=== PATIENT | female | born 1995 | race Caucasian/White ===

== ENCOUNTER → 2016-11-12 20:01 | Observation (INO) ==
--- NOTE | 2016-11-12 19:43 | Discharge Summary ---
Date of Encounter: 11/12/16 Time of Encounter: 19:45 - Discharge Diagnosis (1) 28 weeks gestation of Priority: Primary Status: Acute Comments: Admitted for observation (2) Decreased movement during in third trimester, antepartum Priority: Secondary Status: Acute Comments: Continuous monitoring. FHR 140 bpm, appropriate for gestational age. Qualifiers: Fetus number: single or unspecified fetus Qualified Code(s): O36.8130 - Decreased movements, third trimester, not applicable or unspecified - Discharge Medications Allergies/Adverse Reactions: 3 Allergy/AdvReac Type Severity Reaction Status Date / Time No Known Allergies Allergy Verified 12/12/15 00:06 Date of admission: 11/12/16 18:28 Discharging clinician: Jennifer Mcfarland Anticipated date of discharge: 11/12/16 - Patient Status Disposition: Home, Self-Care Condition: Good Functional capacity at discharge: independent ambulation - Discharge Instructions Follow Up With: Robert Kay DO [Partnered Physician] - - Diet and Activity Activity: increase activity as tolerated Diet: advance to your usual diet 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 States she had only felt 3-4 movements since this morning. Patient reports good movement since she has been on the monitor. Denies fluid leakage and vaginal bleeding. Discussed when to begin kick counts in and expectations of how many movements are normal at this gestation. Time Attestation: Total time spent providing and/or coordinating discharge services: Time Spent: Less than 30 minutes Exam - Constitutional General appearance IM: A&O X 3, pleasant, no acute distress, answers questions appropriately - Respiratory Respiratory exam: Present: CTAB - Cardiovascular Cardiovascular exam IM: Present: RRR, +S1, +S2 - GI/Abdominal GI/Abdominal exam IM: normal bowel sounds - Rectal Rectal exam: deferred - Extremities Exam Extremities exam IM: Present: full ROM, normal capillary refill, normal inspection - Neurological Exam Neurological exam: alert, oriented X3 - Other Additional findings: FHR 140 bpm, appropriate for gestational age - VTE Reasons for not Prescribing Prophylaxis: Treatment not Indicated - Low risk for VTE
== END | disposition home or self-care (01) ==
LOC: 1NENULAB
PROVIDERS: ADMIT Obstetrics & Gynecology; ATTEND Obstetrics & Gynecology

== ENCOUNTER → 2016-11-26 16:03 | Observation (INO) ==
[2016-11-26 15:29] LABS: Bilirubin,Urine Negative (Negative); Blood,Urine Negative (Negative); Clarity,Urine Cloudy (Clear); Color,Urine Yellow (Yellow); Glucose,Urine (UA) Normal (Normal); Ketones,Urine Negative (Negative); Leukocyte Esterase,Urine Large (Negative); Nitrite,Urine Positive (Negative); PH,Urine 7.5 pH Units (5.0-8.0); Protein,Urine Negative (Neg-Trace); Specific Gravity,Urine 1.011 (1.010-1.025); Urobilinogen,Urine Normal (Normal)
[2016-11-26 15:30] LABS: Bacteria,Urine Many per hpf (None-Few); Hyaline Casts,Urine None Seen per lpf (None-Few); RBC,Urine 0-3 per hpf (0-3); Squamous Epithelial Cell,Urine Many per lpf (None-Few)
[2016-11-26 15:35] LABS: Amphetamine Screen,Urine Negative ng/mL (Cutoff=1000); Barbiturate Screen,Urine Negative ng/mL (Cutoff=200); Benzodiazepines Screen,Urine Negative ng/mL (Cutoff=200); Cannabinoid Screen,Urine Negative ng/mL (Cutoff = 50); Cocaine Screen,Urine Negative ng/mL (Cutoff= 300); Opiate Screen,Urine Negative ng/mL (Cutoff=300); Phencyclidine Screen,Urine Negative ng/mL (Cutoff=25)
--- NOTE | 2016-11-26 15:53 | Discharge Summary ---
Date of Encounter: 11/26/16 Time of Encounter: 15:52 - Discharge Diagnosis (1) 30 weeks gestation of Priority: Primary Status: Acute Comments: admitted for observation (2) UTI (urinary tract infection) in in third trimester Priority: Secondary Status: Acute Comments: RX for macrobid patient declined SVE - Discharge Medications Prescriptions: Nitrofurantoin (BID) [Macrobid] 100 mg PO BID 7 Days #14 capsule Home Medications: Nitrofurantoin (BID) [Macrobid] 100 mg PO BID 7 Days #14 capsule 11/26/16 [Rx] Allergies/Adverse Reactions: 3 Allergy/AdvReac Type Severity Reaction Status Date / Time No Known Allergies Allergy Verified 12/12/15 00:06 Data Procedures and tests throughout hospitalization: Laboratory Tests 11/26/16 11/26/16 15:17 15:17 Urine Color Yellow Urine Clarity Cloudy A Urine pH 7.5 Ur Specific [place] 1.011 Urine Protein Negative Urine Glucose (UA) Normal Urine Ketones Negative Urine Blood Negative Urine Nitrite Positive A Urine Bilirubin Negative Urine Urobilinogen Normal Ur Leukocyte Esterase Large H Urine Microscopic RBC 0-3 Urine Microscopic WBC 5-15 H Ur Squamous Epith Cells Many H Urine Bacteria Many H Hyaline Casts None Seen Ur Culture Indicated? YES A Urine Opiates Screen Negative Ur Barbiturates Screen Negative Ur Phencyclidine Scrn Negative Ur Amphetamines Screen Negative U Benzodiazepines Scrn Negative Urine Cocaine Screen Negative U Marijuana (THC) Screen Negative Labs on day of discharge: Labs from last 24 hours 11/26/16 11/26/16 15:17 15:17 Urine Color Yellow Urine Clarity Cloudy A Urine pH 7.5 Ur Specific [place] 1.011 Urine Protein Negative Urine Glucose (UA) Normal Urine Ketones Negative Urine Blood Negative Urine Nitrite Positive A Urine Bilirubin Negative Urine Urobilinogen Normal Ur Leukocyte Esterase Large H Urine Microscopic RBC 0-3 Urine Microscopic WBC 5-15 H Ur Squamous Epith Cells Many H Urine Bacteria Many H Hyaline Casts None Seen Ur Culture Indicated? YES A Urine Opiates Screen Negative Ur Barbiturates Screen Negative Ur Phencyclidine Scrn Negative Ur Amphetamines Screen Negative U Benzodiazepines Scrn Negative Urine Cocaine Screen Negative U Marijuana (THC) Screen Negative Date of admission: 11/26/16 15:00 Discharging clinician: Jennifer Mcfarland Anticipated date of discharge: 11/26/16 - Patient Status Disposition: Home, Self-Care Condition: Good Functional capacity at discharge: independent ambulation - Discharge Instructions Follow Up With: Robert Kay DO [Partnered Physician] - Additional Instructions: LABOR AND DELIVERY DISCHARGE INSTRUCTIONS Signs and Symptoms to be Reported to your Doctor Immediately: * Sudden gush, continuous or intermittent lead of fluid from vagina (note the time of gush and color of fluid) * Onset of bright red vaginal bleeding with or without pain (if you had a vaginal exam during this visit you may notice some dark red spotting. This is normal.) * Lower abdominal cramping or backache that is premenstrual-like feeling. * More than 6 contractions in one hour. * Burning during urination, having to urinate more frequently or pain in your mid-back. * A change in the baby's activity. This could be an increase or decrease in activity. * Severe headache which does not go away with tylenol. * Sudden swelling in the face, hands, arms and/or legs. * Upper abdominal pain - sometimes associated with heartburn or nausea and is not relieved by Maalox, Mylanta or Tums. * Dizziness or blurred vision or visual disturbances (seeing stars/lights). * Kick Counts One hour after a meal, lay down on one side in a quiet place. Count the number of delvin the baby moves during an hour. If less than 6 movements, notify your physician. Diet: *Force fluids - 8-10 tall glasses of fluid per day. May include popsicles and jello. 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 Patient states it all started this morning after being at work all night. Patient reports +FM and denies LOF or VB. Patient declines SVE Time Attestation: Total time spent providing and/or coordinating discharge services: Time Spent: Less than 30 minutes Exam - Constitutional General appearance IM: A&O X 3, pleasant, answers questions appropriately - Respiratory Respiratory exam: Present: CTAB - Cardiovascular Cardiovascular exam IM: Present: RRR, +S1, +S2 - GI/Abdominal GI/Abdominal exam IM: normal bowel sounds Additional comments: tender over bladder - Extremities Exam Extremities exam IM: Present: full ROM, normal capillary refill, normal inspection - Neurological Exam Neurological exam: alert, oriented X3, reflexes normal - Other Additional findings: FHR 145 bpm moderate variability +15x15 accels no decels noted. - VTE Reasons for not Prescribing Prophylaxis: Treatment not Indicated - Low risk for VTE
== END | disposition home or self-care (01) ==
LOC: 1NENULAB
PROVIDERS: ADMIT Obstetrics & Gynecology; ATTEND Obstetrics & Gynecology

== ENCOUNTER 2017-01-03 22:36 | Inpatient (IN) ==
[2017-01-03 22:57] LABS: Bilirubin,Urine Negative (Negative); Blood,Urine Negative (Negative); Clarity,Urine Cloudy (Clear); Color,Urine Yellow (Yellow); Glucose,Urine (UA) Normal (Normal); Ketones,Urine Negative (Negative); Leukocyte Esterase,Urine Moderate (Negative); Nitrite,Urine Negative (Negative); Protein,Urine Negative (Neg-Trace); Urobilinogen,Urine Normal (Normal)
[2017-01-03 22:59] LABS: Bacteria,Urine Few per hpf (None-Few); Hyaline Casts,Urine None Seen per lpf (None-Few); RBC,Urine 0-3 per hpf (0-3); Squamous Epithelial Cell,Urine Many per lpf (None-Few)
[2017-01-03 23:02] LABS: Amphetamine Screen,Urine Negative ng/mL (Cutoff=1000); Barbiturate Screen,Urine Negative ng/mL (Cutoff=200); Benzodiazepines Screen,Urine Negative ng/mL (Cutoff=200); Cannabinoid Screen,Urine Negative ng/mL (Cutoff = 50); Cocaine Screen,Urine Negative ng/mL (Cutoff= 300); Opiate Screen,Urine Negative ng/mL (Cutoff=300); Phencyclidine Screen,Urine Negative ng/mL (Cutoff=25)
--- NOTE | 2017-01-03 23:09 | OB/GYN Progress Note ---
Date of Encounter: 01/03/17 Time of Encounter: 23:07 - Assessment and Plan (1) Pelvic pressure in , antepartum Current Visit: Yes Status: Acute Cervical dilation unchanged from last office VE., but descent into pelvis to -1 station. Pt states does not feel contractions, uterine irritability noted on tracing. Discussed with patient increase pressure from descent and vaginal discomfort can occur with descent. Will recheck cervix in one hour if no change discharge home with labor and when to return to triage precautions. (2) 35 weeks gestation of Current Visit: No Status: Acute Subjective - Subjective Interval history: 35+3 gestation. Complains of feeling increased pelvic pressure today accompanied with occasional sharp shooting vaginal pains. Reports good movement, denies contractions, vaginal bleeding or leaking of fluid. Antepartum ROS: movement normal, no loss of fluid, no vaginal bleeding, no contractions Objective - Vital Signs Vital Signs: Intake and Output 01/03/17 01/03/17 01/03/17 07:59 15:59 23:59 Other: Weight 73.6 kg Patient Weight 01/03/17 23:59 Weight 73.6 kg - Exam FHR: auscultation normal FHR comments: Baseline 140, reactive Abdomen: Present: normal appearance, soft, gravid Uterus: Present: normal Cervical dilation: 2/50/-1 Per RN - Labs Labs: Abnormal lab results Urine Clarity Cloudy (Clear) A 01/03/17 22:45 Ur Leukocyte Esterase Moderate (Negative) H 01/03/17 22:45
[2017-01-03] MEDS ORDERED: Ringers Solution, Lactated 1,000 ML IVC ONE (23:36)
[2017-01-03] MEDS ORDERED: Ringers Solution, Lactated 1,000 ML ONE (23:38)
[2017-01-04] LABS: Hematocrit 31.2 % (35.3-44.9); Hemoglobin 10.4 g/dL (11.5-15.4); Immature Platelets 2.5 % (1.1-6.1); Mean Corpuscular HGB Conc 33.3 g/dL (31.6-35.5); Mean Corpuscular Hemoglobin 28.5 pg (28.0-33.3); Mean Corpuscular Volume 85.5 fL (83.0-100.0); Mean Platelet Volume 9.5 fL (9.4-12.4); Red Blood Count 3.65 M/mcL (3.82-4.97); Red Cell Distribution Width 12.9 % (11.5-14.5)
[2017-01-04] MEDS: Betamethasone Acet/SodPhos 6 MG/ML MDV IM SCH (00:02)
[2017-01-04] MEDS ORDERED: Penicillin G Potassium 5,000,000 UNIT in D5% in Water 100 ML IVPB ONE (07:22)
--- NOTE | 2017-01-04 10:41 | OB/GYN History & Physical ---
Date of Encounter: 01/04/17 Time of Encounter: 10:38 Assessment and Plan (1) 35 weeks gestation of Current visit: Yes Status: Acute Discussed with Dr. Brooks Patient is 35w4d Reports feeling contractions today of unknown length. Having a baby boy planning to name him Yoko Pt has made change from 2 to now 6cm. Admitted for labor Patient started on penicillin for GBS prophylaxis One dose of betamethasone has been given. Per Dr. Brooks keep next dose at 24 hours Nuabin and epidural as desires Anticipate (2) Pelvic pressure in , antepartum Current visit: Yes Status: Acute Patient presented for pelvic pressure and vaginal pain but states that she has not had any today. History of Present Illness Chief complaint: Pelvic Pressure in HPI: Ms. Rodriguez is a 21 year old female that is 35w4d. Presents to L&D for pelvic pressure. She states that last night she was having pelvic pressure and vaginal pain. she states that she has not really been having any vaginal pain today. She denies any loss of fluid, vaginal discharge but does state that she has had some bleeding after the last time her cervix was checked. States that she is still having good movement. She states that she feels like she has been having contractions but does not know how far apart they are and states that they are on an off. Pt with slow progressive surgical change noted overnight. now admitted to L&D for delivery. Gonorrhea-not detected Chlamydia-not detected Gardnerella- not detected HIV-Nonreactive Treponema-Negative Rubella IgG Antibody-Positive Varicella IgG Antibody-Positive type and screen- O Positive GBS unknown Past Med Surg Social Fam HX - Past Medical History Medical history: no medical history, migraine Psychiatric history: anxiety, depression - Past Surgical History Surgical History: other - Social History Smoking Status: Never smoker Smokeless Tobacco Status: No Alcohol use: none Drug use: none - Family History Mother Family Member Ethnicity: Non- Living Status: Still Living Hx Family Cardiac Disorders: No Hx Family Respiratory Disorders: No Hx Family Cancer: No Hx Family GI Disorders: No Hx Family Endocrine Disorder: No Hx Family Neuromuscular Disorders: No Hx Family Neurologic Disorders: No Hx Family HEENT Disorders: No Hx Family Autoimmune Disorders: No Obstetrical History - Pregnancies : 3 Para: 1 Term: 1 : 0 Ab's: 0 Livin Medications and Allergies Nitrofurantoin (BID) [Macrobid] 100 mg PO BID 7 Days #14 capsule 11/26/16 [Rx] 3 Allergy/AdvReac Type Severity Reaction Status Date / Time No Known Allergies Allergy Verified 12/12/15 00:06 Review of System OB All systems PM: reviewed and no additional remarkable complaints except as stated Exam - Constitutional Constitutional: well developed, well nourished, no acute distress - HEENT HEENT: Normocephaly, Mucus Membranes Moist - Neck Neck exam: full ROM - Lungs Respiratory exam: CTAB - Cardiovascular Cardiovascular exam: RRR, +S1, +S2 - Abdomen Abdomen: Present: bowel sounds normal - Extremities Extremities exam: full ROM, normal inspection - Cervix Dilation: 4 (Per RN) - Uterus Uterus exam: Present: normal size, normal contour Results Result Diagrams: 01/03/17 23:50 Abnormal lab results RBC 3.65 M/mcL (3.82-4.97) L 01/03/17 23:50 Hgb 10.4 g/dL (11.5-15.4) L 01/03/17 23:50 Hct 31.2 % (35.3-44.9) L 01/03/17 23:50 Urine Clarity Cloudy (Clear) A 01/03/17 22:45 Ur Leukocyte Esterase Moderate (Negative) H 01/03/17 22:45 Urine Microscopic WBC 5-15 per hpf (0-3) H 01/03/17 22:45 Ur Squamous Epith Cells Many per lpf (None-Few) H 01/03/17 22:45 Ur Culture Indicated? YES (NO) A 01/03/17 22:45 All other labs normal. - VTE Reasons for not Prescribing Prophylaxis: Treatment not Indicated - Low risk for VTE
[2017-01-04] MEDS ORDERED: *HR* Nalbuphine 20 MG/ML AMPUL IVP PRN (11:53)
[2017-01-04] MEDS ORDERED: Famotidine 20 MG/2 ML VIAL IVP PRN (11:53)
[2017-01-04] MEDS ORDERED: Naloxone 0.4 MG/ML INJ IVP PRN (11:53)
[2017-01-04] MEDS ORDERED: Ondansetron 4 MG/2 ML VIAL IVP PRN (11:53)
[2017-01-04] MEDS ORDERED: Ringers Solution, Lactated 1,000 ML ONE ×2 (12:13→21:25)
[2017-01-04] MEDS: Penicillin G Potassium 2,500,000 UNIT in D5% in Water 100 ML IVPB SCH ×4 (12:16→20:37)
--- NOTE | 2017-01-04 15:57 | OB Labor Progress Note ---
Date of Encounter: 01/04/17 Time of Encounter: 15:55 Labor Progress Note - Subjective Subjective: Patient is resting comfortably in bed at this time. States she feels contractions, but they are not significantly painful. Does not desire any pain medications at this time. - Vital Signs Vital Signs: VSS - Cervix Cervix: Patient was 6 cm at noon per RN. Delaying cervical check until patient condition changes due to her pre-term status. - Heart Tones Heart Tones: 120/moderated/positive accels/negative decels/CAT-I - [place]: q2-7 minutes - Plan Plan: Continue expectant management. PCN for GBS unknown. Patient received one dose of 12mg IM Betamethasone. Next dose due at midnight. Nubain and epidural as desired. Anticipate .
--- NOTE | 2017-01-04 19:55 | OB Labor Progress Note ---
Date of Encounter: 01/04/17 Time of Encounter: 19:52 Labor Progress Note - Subjective Subjective: Pt states she is only feeling occasional contractions - Cervix Cervix: 6 per RN - Heart Tones Heart Tones: 125/moderate/+accels/-decels - [place]: occasional ctx - Plan Plan: Due to decrease in ctx and no cervical change in 6 hours will allow patient to eat one meal then back to clear liquids Maintain admission overnight for labor evaluation Betametasone tonight Ambien 5mg for sleep if continues to have no contractions Will reassess in AM.
[2017-01-05] MEDS: Betamethasone Acet/SodPhos 6 MG/ML MDV IM SCH (00:16)
[2017-01-05] MEDS: Penicillin G Potassium 2,500,000 UNIT in D5% in Water 100 ML IVPB SCH ×2 (00:24→04:44)
--- NOTE | 2017-01-05 08:09 | Discharge Summary ---
Date of Encounter: 01/05/17 Time of Encounter: 08:11 - Discharge Diagnosis (1) labor in third trimester without delivery Priority: Primary Status: Acute Comments: The patient progressed to 5-6 cm/75/-1 per CNM. She has not made change in over 12 hours. She is comfortable and does not appreciate any regular contractions. She is had some show from her exams. She denies any loss of fluid. Fetus is active. She is being discharged home with labor warning signs. She lives 15 minutes away. (2) 35 weeks gestation of Priority: Secondary Status: Acute Comments: Follow-up as scheduled this week with Dr. Kay for care - Discharge Medications Home Medications: Nitrofurantoin (BID) [Macrobid] 100 mg PO BID 7 Days #14 capsule 11/26/16 [Rx] Allergies/Adverse Reactions: 3 Allergy/AdvReac Type Severity Reaction Status Date / Time No Known Allergies Allergy Verified 12/12/15 00:06 Data Procedures and tests throughout hospitalization: Laboratory Tests 01/03/17 01/03/17 01/03/17 22:45 22:45 23:50 WBC 10.2 RBC 3.65 L Hgb 10.4 L Hct 31.2 L MCV 85.5 MCH 28.5 MCHC 33.3 RDW 12.9 Plt Count 250 MPV 9.5 Immature Plt Fraction 2.5 Urine Color Yellow Urine Clarity Cloudy A Urine pH 7.0 Ur Specific [place] 1.020 Urine Protein Negative Urine Glucose (UA) Normal Urine Ketones Negative Urine Blood Negative Urine Nitrite Negative Urine Bilirubin Negative Urine Urobilinogen Normal Ur Leukocyte Esterase Moderate H Urine Microscopic RBC 0-3 Urine Microscopic WBC 5-15 H Ur Squamous Epith Cells Many H Urine Bacteria Few Hyaline Casts None Seen Ur Culture Indicated? YES A Urine Opiates Screen Negative Ur Barbiturates Screen Negative Ur Phencyclidine Scrn Negative Ur Amphetamines Screen Negative U Benzodiazepines Scrn Negative Urine Cocaine Screen Negative U Marijuana (THC) Screen Negative Labs on day of discharge: Urine culture negative Date of admission: 01/04/17 11:53 Primary care physician: PCP RAPHAEL Discharging clinician: Tracy Macario - Patient Status Disposition: Home, Self-Care Condition: Good Functional capacity at discharge: independent ambulation Overall status at discharge: patient is back to baseline - Discharge Instructions Follow Up With: NONE,PCP [Primary Care Provider] - Robert Kay DO [Partnered Physician] - - Diet and Activity Activity: resume usual activities as tolerated Diet: regular diet 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 She made cervical change from 2 cm to 5-6 cm and was comfortable with her contractions. Contractions have stopped for over 12 hours now. Patient is agreeable to be discharged home as she lives close. She has not been tested for GBS. She did receive prophylactic antibiotics for GBS unknown. heart tones are 120s baseline, CAT 1. [place] shows no regular contractions Time Attestation: Total time spent providing and/or coordinating discharge services: Time Spent: Less than 30 minutes Exam - Constitutional General appearance IM: A&O X 3, pleasant, no acute distress - Respiratory Respiratory exam: Present: CTAB. Absent: respiratory distress - Cardiovascular Cardiovascular exam IM: Present: RRR. Absent: irregular rhythm - GI/Abdominal GI/Abdominal exam IM: normal bowel sounds, soft, no peritoneal signs - Rectal Rectal exam: deferred - Extremities Exam Extremities exam IM: Present: normal inspection, warm. Absent: calf tenderness - Neurological Exam Neurological exam: alert, no focal deficits - Other Additional findings: Abdomen is gravid, soft, nontender - VTE Reasons for not Prescribing Prophylaxis: Treatment not Indicated - Low risk for VTE
[2017-01-05] MEDS ORDERED: FLUARIX QUAD 2017-18 36MOS UP/PF 0.5 ML SYRINGE IM ONE (08:12)
== END 2017-01-05 08:39 | disposition home or self-care (01) | DRG 563 ==
LOC: 1NENULAB
PROVIDERS: ADMIT Obstetrics & Gynecology; ATTEND Obstetrics & Gynecology

== ENCOUNTER → 2017-01-08 18:56 | Observation (INO) ==
[2017-01-08 18:21] LABS: Bilirubin,Urine Negative (Negative); Blood,Urine Negative (Negative); Clarity,Urine Cloudy (Clear); Color,Urine Yellow (Yellow); Glucose,Urine (UA) Normal (Normal); Ketones,Urine Negative (Negative); Leukocyte Esterase,Urine Moderate (Negative); Nitrite,Urine Negative (Negative); Protein,Urine Negative (Neg-Trace); Specific Gravity,Urine 1.018 (1.010-1.025); Urobilinogen,Urine Normal (Normal)
[2017-01-08 18:25] LABS: Bacteria,Urine Few per hpf (None-Few); Hyaline Casts,Urine None Seen per lpf (None-Few); RBC,Urine 0-3 per hpf (0-3); Squamous Epithelial Cell,Urine Many per lpf (None-Few)
--- NOTE | 2017-01-08 18:57 | Discharge Summary ---
Date of Encounter: 01/08/17 Time of Encounter: 18:57 - Discharge Diagnosis (1) 36 weeks gestation of Priority: Primary Status: Acute Comments: Patient admitted for observation no cervical change after 1 hour discharge home (2) Decreased movement during in third trimester, antepartum Priority: Secondary Status: Acute Comments: Patient reports feeling movement on unit Reactive nst Qualifiers: Fetus number: single or unspecified fetus Qualified Code(s): O36.8130 - Decreased movements, third trimester, not applicable or unspecified (3) NST (non-stress test) reactive on surveillance Priority: Secondary Status: Acute Comments: reactive nst: Baseline 150 bpm moderate amount of variability +15x15 accels no decels noted. CAt. 1 tracing - Discharge Medications Home Medications: Nitrofurantoin (BID) [Macrobid] 100 mg PO BID 7 Days #14 capsule 11/26/16 [Rx] Allergies/Adverse Reactions: 3 Allergy/AdvReac Type Severity Reaction Status Date / Time No Known Allergies Allergy Verified 12/12/15 00:06 Data Procedures and tests throughout hospitalization: Laboratory Tests 01/08/17 17:48 Urine Color Yellow Urine Clarity Cloudy A Urine pH 7.0 Ur Specific [place] 1.018 Urine Protein Negative Urine Glucose (UA) Normal Urine Ketones Negative Urine Blood Negative Urine Nitrite Negative Urine Bilirubin Negative Urine Urobilinogen Normal Ur Leukocyte Esterase Moderate H Urine Microscopic RBC 0-3 Urine Microscopic WBC 5-15 H Ur Squamous Epith Cells Many H Urine Bacteria Few Hyaline Casts None Seen Urine Yeast UNDERCOAT SPRAYER Ur Culture Indicated? YES A Labs on day of discharge: Labs from last 24 hours 01/08/17 17:48 Urine Color Yellow Urine Clarity Cloudy A Urine pH 7.0 Ur Specific [place] 1.018 Urine Protein Negative Urine Glucose (UA) Normal Urine Ketones Negative Urine Blood Negative Urine Nitrite Negative Urine Bilirubin Negative Urine Urobilinogen Normal Ur Leukocyte Esterase Moderate H Urine Microscopic RBC 0-3 Urine Microscopic WBC 5-15 H Ur Squamous Epith Cells Many H Urine Bacteria Few Hyaline Casts None Seen Urine Yeast UNDERCOAT SPRAYER Ur Culture Indicated? YES A Date of admission: 01/08/17 17:45 Discharging clinician: Jennifer Mcfarland Anticipated date of discharge: 01/08/17 - Patient Status Disposition: Home, Self-Care Condition: Good Functional capacity at discharge: independent ambulation - Discharge Instructions Follow Up With: Robert Kay DO [Partnered Physician] - Additional Instructions: LABOR AND DELIVERY DISCHARGE INSTRUCTIONS Signs and Symptoms to be Reported to your Doctor Immediately: * Sudden gush, continuous or intermittent lead of fluid from vagina (note the time of gush and color of fluid) * Onset of bright red vaginal bleeding with or without pain (if you had a vaginal exam during this visit you may notice some dark red spotting. This is normal.) * Lower abdominal cramping or backache that is premenstrual-like feeling. * More than 6 contractions in one hour. * Burning during urination, having to urinate more frequently or pain in your mid-back. * A change in the baby's activity. This could be an increase or decrease in activity. * Severe headache which does not go away with tylenol. * Sudden swelling in the face, hands, arms and/or legs. * Upper abdominal pain - sometimes associated with heartburn or nausea and is not relieved by Maalox, Mylanta or Tums. * Dizziness or blurred vision or visual disturbances (seeing stars/lights). * Kick Counts One hour after a meal, lay down on one side in a quiet place. Count the number of delvin the baby moves during an hour. If less than 6 movements, notify your physician. Diet: *Force fluids - 8-10 tall glasses of fluid per day. May include popsicles and jello. 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 Patient denies LOF or VB. SVE on admission was 5/80/- 2 and repeat in 1 hour was same per RN. Time Attestation: Total time spent providing and/or coordinating discharge services: Time Spent: Less than 30 minutes Exam - Constitutional General appearance IM: A&O X 3, pleasant, answers questions appropriately - Respiratory Respiratory exam: Present: CTAB - Cardiovascular Cardiovascular exam IM: Present: RRR, +S1, +S2 - Other Additional findings: FHR 155 bpm moderate variability +15x15 accels no decels noted. Contractions irregular. SVE on admission 5cm per RN - VTE Reasons for not Prescribing Prophylaxis: Treatment not Indicated - Low risk for VTE
[2017-01-08 19:07] LABS: Amphetamine Screen,Urine Negative ng/mL (Cutoff=1000); Barbiturate Screen,Urine Negative ng/mL (Cutoff=200); Benzodiazepines Screen,Urine Negative ng/mL (Cutoff=200); Cannabinoid Screen,Urine Negative ng/mL (Cutoff = 50); Cocaine Screen,Urine Negative ng/mL (Cutoff= 300); Opiate Screen,Urine Negative ng/mL (Cutoff=300); Phencyclidine Screen,Urine Negative ng/mL (Cutoff=25)
== END | disposition home or self-care (01) ==
LOC: 1NENULAB
PROVIDERS: ADMIT Obstetrics & Gynecology; ATTEND Obstetrics & Gynecology

== ENCOUNTER → 2017-01-24 22:25 | Observation (INO) ==
[2017-01-24 21:35] LABS: Amphetamine Screen,Urine Negative ng/mL (Cutoff=1000); Barbiturate Screen,Urine Negative ng/mL (Cutoff=200); Benzodiazepines Screen,Urine Negative ng/mL (Cutoff=200); Cannabinoid Screen,Urine Negative ng/mL (Cutoff = 50); Cocaine Screen,Urine Negative ng/mL (Cutoff= 300); Opiate Screen,Urine Negative ng/mL (Cutoff=300); Phencyclidine Screen,Urine Negative ng/mL (Cutoff=25)
--- NOTE | 2017-01-24 22:14 | OB/GYN Progress Note ---
Date of Encounter: 01/24/17 Time of Encounter: 22:11 - Assessment and Plan (1) Pelvic pressure in , antepartum Current Visit: Yes Status: Acute Reporting constant pelvic pressure and lower abdominal crampy pain Denies contractions, LOF, vaginal bleeding, or vaginal discharge FHT - baseline 150 with variability and accels - Category I, NST reactive [place] irregular Cervical check in office /-2 for the past 3 weeks Cervical check now /-1 Pt has not made cervical change. She can be discharged home with labor precautions (2) 38 weeks gestation of Current Visit: Yes Status: Acute Subjective - Subjective Principal diagnosis: Pelvic Pressure Interval history: Pt is a 22 year old female at 38w7d presenting to L&D for pelvic pressure and crampy lower abdominal pain. She denies contractions, LOF, vaginal bleeding, or vaginal discharge. She reports good movement. She reports there have been no complications with this . She denies fevers, chills , headaches, chest pain, dyspnea, upper abdominal pain, N/V, dysuria, or edema. Antepartum ROS: movement normal, no loss of fluid, no vaginal bleeding, no contractions Objective - Vital Signs Vital Signs: Intake and Output 01/24/17 01/24/17 01/24/17 07:59 15:59 23:59 Other: Weight 74.1 kg Patient Weight 01/24/17 23:59 Weight 74.1 kg - Exam FHR: auscultation normal, category 1 Auscultation: bilateral: normal Abdomen: Present: normal appearance, soft, gravid. Absent: tenderness Uterus: Present: normal, firm Cervical dilation: 5 cm per RN Cervix effacement: 70 station: -1
== END | disposition home or self-care (01) ==
LOC: 1NENULAB
PROVIDERS: ADMIT Student in an Organized Health Care Education/Training Program; ATTEND Student in an Organized Health Care Education/Training Program

== ENCOUNTER 2017-01-28 14:02 | Inpatient (IN) ==
[2017-01-28] MEDS ORDERED: Naloxone 0.4 MG/ML INJ IVP PRN (14:54)
[2017-01-28] MEDS ORDERED: *HR* Nalbuphine 20 MG/ML AMPUL IVP PRN (14:54)
[2017-01-28] MEDS ORDERED: Famotidine 20 MG/2 ML VIAL IVP PRN (14:54)
[2017-01-28] MEDS ORDERED: Ondansetron 4 MG/2 ML VIAL IVP PRN (14:54)
[2017-01-28] MEDS ORDERED: Ringers Solution, Lactated 1,000 ML IVC SCH (15:00)
[2017-01-28 15:15] LABS: Basophils % 0.5 %; Eosinophils # 0.1 K/mcL (0.0-0.6); Eosinophils % 0.9 %; Hematocrit 34.9 % (35.3-44.9); Immature Granulocytes % 0.4 % (0-4); Lymphocytes # 1.9 K/mcL (0.6-4.6); Lymphocytes % 25.2 %; Mean Corpuscular HGB Conc 31.5 g/dL (31.6-35.5); Mean Corpuscular Hemoglobin 26.1 pg (28.0-33.3); Mean Corpuscular Volume 82.7 fL (83.0-100.0); Mean Platelet Volume 9.8 fL (9.4-12.4); Monocytes # 0.8 K/mcL (0.0-1.3); Monocytes % 10.4 %; Neutrophils # 4.6 K/mcL (1.6-8.9); Platelet Count 272 K/mcL (140-400); Red Blood Count 4.22 M/mcL (3.82-4.97); Red Cell Distribution Width 13.8 % (11.5-14.5); Segmented Neutrophils % 62.6 %
[2017-01-28 16:44] LABS: Amphetamine Screen,Urine Negative ng/mL (Cutoff=1000); Barbiturate Screen,Urine Negative ng/mL (Cutoff=200); Benzodiazepines Screen,Urine Negative ng/mL (Cutoff=200); Cannabinoid Screen,Urine Negative ng/mL (Cutoff = 50); Cocaine Screen,Urine Negative ng/mL (Cutoff= 300); Opiate Screen,Urine Negative ng/mL (Cutoff=300); Phencyclidine Screen,Urine Negative ng/mL (Cutoff=25)
--- NOTE | 2017-01-28 17:17 | OB/GYN History & Physical ---
Date of Encounter: 01/28/17 Time of Encounter: 17:14 Assessment and Plan (1) 39 weeks gestation of Current visit: No Status: Acute (2) Active labor Current visit: No Status: Acute Admit for expectant management. AROM when able. Epidural if desired. Anticipate . History of Present Illness Chief complaint: ACD HPI: Ms. Rodriguez is a 22 year old female presenting at 39 weeks gestation from office for ACD 6cm. Pt reports a few contractions but is not having much discomfort. No LOF or VB. Good FM. Blood type O positive Rubella immune Serologies negative GBS negative Past Med Surg Social Fam HX - Past Medical History Medical history: migraine Psychiatric history: anxiety - Past Surgical History Surgical History: other - Social History Smoking Status: Never smoker Smokeless Tobacco Status: No Alcohol use: none Drug use: none - Family History Mother Family Member Ethnicity: Non- Living Status: Still Living Hx Family Cardiac Disorders: No Hx Family Respiratory Disorders: No Hx Family Cancer: No Hx Family GI Disorders: No Hx Family Endocrine Disorder: Yes (hyperthyroidism) Hx Family Neuromuscular Disorders: No Hx Family Neurologic Disorders: No Hx Family HEENT Disorders: No Hx Family Autoimmune Disorders: No Obstetrical History - Pregnancies : 2 Para: 1 Term: 1 : 0 Ab's: 0 Livin Medications and Allergies 3 Allergy/AdvReac Type Severity Reaction Status Date / Time No Known Allergies Allergy Verified 01/24/17 21:25 Review of System OB All systems PM: reviewed and no additional remarkable complaints except as stated Exam - Constitutional Constitutional: well developed, well nourished, no acute distress - HEENT HEENT: Mucus Membranes Moist - Lungs Respiratory exam: CTAB - Cardiovascular Cardiovascular exam: RRR, +S1, +S2 - Abdomen Abdomen: Present: gravid, non tender - Extremities Extremities exam: normal inspection - Cervix Dilation: 6 (per Dr. Kay) - Anus/Rectum Anus/Rectum: Present: normal perianal skin Results Result Diagrams: 01/28/17 14:20 Abnormal lab results Hgb 11.0 g/dL (11.5-15.4) L 01/28/17 14:20 Hct 34.9 % (35.3-44.9) L 01/28/17 14:20 MCV 82.7 fL (83.0-100.0) L 01/28/17 14:20 MCH 26.1 pg (28.0-33.3) L 01/28/17 14:20 MCHC 31.5 g/dL (31.6-35.5) L 01/28/17 14:20 All other labs normal. - VTE Reasons for not Prescribing Prophylaxis: Treatment not Indicated - Low risk for VTE
[2017-01-28] MEDS ORDERED: Oxytocin 20 units/ LR 1000 mL 20 UNIT/1,000 ML BAG IVC ONE (17:41)
[2017-01-28] MEDS ORDERED: Oxytocin 20 units/ LR 1000 mL 20 UNIT/1,000 ML BAG IVC SCH ×2 (17:45→22:26)
[2017-01-28] MEDS ORDERED: Lidocaine 1% 20 ML MDV ONE (20:01)
--- NOTE | 2017-01-28 21:44 | OB Labor Progress Note ---
Date of Encounter: 01/28/17 Time of Encounter: 18:30 Labor Progress Note - Subjective Subjective: patient doing well feeling contractions - Cervix Cervix: 7/80/0 AROM large amt clear fluid - Heart Tones Heart Tones: FHT 140's reactive - Lavinia Lavinia: contractions every 2 min - Plan Plan: continue current care
--- NOTE | 2017-01-28 21:48 | OB/GYN Procedure Note ---
Delivery - Delivery Date: 01/28/17 Provider: Robert Kay Intrapartum events: none Delivery augmentation: rupture of membranes, pitocin Delivery monitor: external FHT, external uterine Anesthesia: none Estimated Blood Loss: 100 - Infant (s) A Infant Delivery Date: 01/28/17 Delivery Time: 21:07 Presentation: vertex Position: MARTINEZ Route of delivery: Gender: Male Viability: Viable Pounds: 8 Ounces: 8 Weight Gram: 3.86 kg at 1 minute: 8 at 5 mins: 8 Shoulder Dystocia: encountered Shoulder Dystocia Maneuvers: Edith maneuver, suprapubic pressure (60 sec total time ) Specimens collected: cord blood Placenta: spontaneous Cord: nuchal cord, nuchal reduced - Repair Episiotomy: none Laceration Description: None - Complications Delivery complications: none Delivery comments: Patient is a 22-year-old 2 para 1 at 39-0/7 weeks who was sent from the office due to advanced cervical dilatation in labor. Patient states been codi all night when she was evaluated in the office she was a good 6 cm with bulging membranes and bloody show. She has been 5 cm for the past 3 weeks. Patient was sent to labor and delivery where she was observed she continue make cervical change. She was artificially ruptured when she was 7 cm large amounts of clear fluid we did augment with some Pitocin to get contractional stronger, patient did not want an epidural. Patient was able to get to complete and we had a stop pushing. It was noted that there was a turtle sign and we prepared for shoulder dystocia. 's head did deliver and we did encounter shoulder dystocia Edith and suprapubic pressure was used to get the anterior shoulder delivered after we had reduced a nuchal 1. Once we get the shoulders out we were able to deliver the infant Lee total time of 60 seconds. We did deliver the viable male in right occiput anterior presentation at 2107. Apgars were 8 at 1 minute, 9 at 3 years, weight was 7 lbs. 11 oz. Placenta delivered spontaneously with three-vessel cord, public health microbiologist Dr. Kay, medical assistant float Lyle Marshall OMS3 anesthesia epidural, estimated blood loss 100 mL perineum cervix and vagina was visualized intact. Patient tolerated the delivery well she will be observed 2 hours before being taken to the floor. - Disposition Mom disposition: stable in LDR [place] disposition: stable in LDR
[2017-01-28] MEDS ORDERED: Acetaminophen 325 MG TABLET PO PRN (22:26)
[2017-01-28] MEDS ORDERED: Measles/Mumps/Rubella Vacc 0.5 ML VIAL SQ PRN (22:26)
[2017-01-29 04:41] LABS: Basophils # 0.1 K/mcL (0.0-0.2); Basophils % 0.4 %; Eosinophils % 0.2 %; Hematocrit 29.8 % (35.3-44.9); Hemoglobin 9.5 g/dL (11.5-15.4); Immature Granulocytes % 0.3 % (0-4); Lymphocytes # 1.8 K/mcL (0.6-4.6); Lymphocytes % 13.7 %; Mean Corpuscular HGB Conc 31.9 g/dL (31.6-35.5); Mean Corpuscular Hemoglobin 26.2 pg (28.0-33.3); Mean Corpuscular Volume 82.3 fL (83.0-100.0); Mean Platelet Volume 9.5 fL (9.4-12.4); Monocytes % 7.7 %; Nucleated Red Blood Cells 0.2 /100 WBC (0); Platelet Count 227 K/mcL (140-400); Red Blood Count 3.62 M/mcL (3.82-4.97); Red Cell Distribution Width 13.7 % (11.5-14.5); Segmented Neutrophils % 77.7 %
[2017-01-29] MEDS: Prenatal Vit/FA 1 EACH TABLET PO SCH (08:19)
--- NOTE | 2017-01-29 09:40 | OB/GYN Progress Note ---
Date of Encounter: 01/29/17 Time of Encounter: 09:37 - Assessment and Plan (1) Status post vaginal delivery Current Visit: Yes Status: Acute PPD#1 s/p - complications in delivery of 60 second shoulder dystocia - infant doing well Pain controlled and meeting milestones Likely discharge tomorrow (2) 39 weeks gestation of Current Visit: No Status: Acute Subjective - Subjective Principal diagnosis: S/P Interval history: Pt reports she is doing well with no complaints. Pain is controlled. Ambulating well without light-headedness or dizziness. Tolerating po intake. Voiding well, passing flatus. Denies other symptoms. Patient reports: appetite normal, voiding normally, pain well controlled, ambulating normally [place]: doing well Objective - Latest Vital Signs Latest vital signs: Vital Signs Temp Pulse Resp BP Pulse Ox 01/29/17 07:15 97.7 F 69 16 104/69 01/28/17 23:55 98.0 F 68 16 112/75 97 Intake and Output 01/28/17 01/29/17 01/29/17 23:59 07:59 15:59 Intake Total 200 / 200 240 / 240 Output Total 1650 / 1650 Balance -1450 / -1450 240 / 240 Intake: Oral 200 / 200 240 / 240 Output: Urine 1650 / 1650 Other: Meal Breakfast Weight 69.445 kg - Exam Lungs: bilateral: normal Chest: Normal S1, Normal S2 Extremities: Present: normal Abdomen: Present: normal appearance, soft, gravid Uterus: Present: normal, firm Uterus Position: At Umbilicus - Labs Labs: Laboratory Results - last 24 hr 01/28/17 01/28/17 01/29/17 14:20 15:55 04:17 WBC 7.4 12.9 H D RBC 4.22 3.62 L Hgb 11.0 L 9.5 L D Hct 34.9 L 29.8 L MCV 82.7 L 82.3 L MCH 26.1 L 26.2 L MCHC 31.5 L 31.9 RDW 13.8 13.7 Plt Count 272 227 MPV 9.8 9.5 Immature Gran % 0.4 0.3 Seg Neutrophils % 62.6 77.7 Lymphocytes % 25.2 13.7 Monocytes % 10.4 7.7 Eosinophils % 0.9 0.2 Basophils % 0.5 0.4 Neutrophils # 4.6 10.0 H Lymphocytes # 1.9 1.8 Monocytes # 0.8 1.0 Eosinophils # 0.1 0.0 Basophils # 0.0 0.1 Nucleated RBCs/100 WBC 0.2 H Urine Opiates Screen Negative Ur Barbiturates Screen Negative Ur Phencyclidine Scrn Negative Ur Amphetamines Screen Negative U Benzodiazepines Scrn Negative Urine Cocaine Screen Negative U Marijuana (THC) Screen Negative
[2017-01-29] MEDS: Ibuprofen 600 MG TABLET PO PRN (21:23)
[2017-01-30] MEDS: Prenatal Vit/FA 1 EACH TABLET PO SCH (08:05)
[2017-01-30] MEDS: Ibuprofen 600 MG TABLET PO PRN (08:06)
--- NOTE | 2017-01-30 09:30 | Discharge Summary ---
Date of Encounter: 01/30/17 Time of Encounter: 09:27 - Discharge Diagnosis (1) Status post vaginal delivery Priority: Primary Status: Acute Comments: Pt doing well PPD#2 s/p Pain controlled. Tolerating po intake, ambulating well, voiding well. Pt may be discharged home (2) 39 weeks gestation of Priority: Secondary Status: Acute - Discharge Medications Prescriptions: Ibuprofen [Motrin] 600 mg PO Q6HR PRN #60 tablet PRN Reason: Cramping Docusate [Colace] 100 mg PO BID PRN #60 capsule PRN Reason: Constipation Ferrous Sulfate 325 mg PO DAILY #30 tablet. Home Medications: Docusate [Colace] 100 mg PO BID PRN #60 capsule 01/30/17 [Rx] Ferrous Sulfate 325 mg PO DAILY #30 tablet. 01/30/17 [Rx] Ibuprofen [Motrin] 600 mg PO Q6HR PRN #60 tablet 01/30/17 [Rx] Vit/FA 1 each PO DAILY tablet 01/30/17 [Rx] Allergies/Adverse Reactions: 3 Allergy/AdvReac Type Severity Reaction Status Date / Time No Known Allergies Allergy Verified 01/24/17 21:25 Data Procedures and tests throughout hospitalization: Laboratory Tests 01/28/17 01/28/17 01/29/17 14:20 15:55 04:17 WBC 7.4 12.9 H D RBC 4.22 3.62 L Hgb 11.0 L 9.5 L D Hct 34.9 L 29.8 L MCV 82.7 L 82.3 L MCH 26.1 L 26.2 L MCHC 31.5 L 31.9 RDW 13.8 13.7 Plt Count 272 227 MPV 9.8 9.5 Immature Gran % 0.4 0.3 Seg Neutrophils % 62.6 77.7 Lymphocytes % 25.2 13.7 Monocytes % 10.4 7.7 Eosinophils % 0.9 0.2 Basophils % 0.5 0.4 Neutrophils # 4.6 10.0 H Lymphocytes # 1.9 1.8 Monocytes # 0.8 1.0 Eosinophils # 0.1 0.0 Basophils # 0.0 0.1 Nucleated RBCs/100 WBC 0.2 H Urine Opiates Screen Negative Ur Barbiturates Screen Negative Ur Phencyclidine Scrn Negative Ur Amphetamines Screen Negative U Benzodiazepines Scrn Negative Urine Cocaine Screen Negative U Marijuana (THC) Screen Negative Date of admission: 01/28/17 14:02 Primary care physician: PCP NONE Consults: 01/28/17 22:26 Consult to [facility] [CONS] Routine Comment: Vaginal delivery, consult needed Discharging clinician: Rodri Armendariz Anticipated date of discharge: 01/30/17 - Patient Status Disposition: Home, Self-Care Condition: Good Functional capacity at discharge: independent ambulation Overall status at discharge: patient is progressing back to baseline - Discharge Instructions Follow Up With: NONE,PCP [Primary Care Provider] - Additional Instructions: Take medications as prescribed Feed your baby every 2-3 hours Follow-up with OB in 6 weeks - Diet and Activity Activity: increase activity as tolerated Diet: advance to your usual diet Hospital Course Reason for admission: active labor Delivery: Episiotomy: none Laceration: none Other procedures: none complications: none Discharge diagnosis: IUP at term delivered [place] baby: male Hospital course: - Delivery Date: 01/28/17 Provider: Robert Kay Intrapartum events: none Delivery augmentation: rupture of membranes, pitocin Delivery monitor: external FHT, external uterine Anesthesia: none Estimated Blood Loss: 100 - Infant (s) A Infant Delivery Date: 01/28/17 Infant Delivery Time: 21:07 Presentation: vertex Position: MARTINEZ Route of delivery: Gender: Male Viability: Viable Pounds: 8 Ounces: 8 Weight Gram: 3.86 kg at 1 minute: 8 at 5 mins: 8 Shoulder Dystocia: encountered Shoulder Dystocia Maneuvers: Edith maneuver, suprapubic pressure (60 sec total time ) Specimens collected: cord blood Placenta: spontaneous Cord: nuchal cord, nuchal reduced - Repair Episiotomy: none Laceration Description: None - Complications Delivery complications: none Delivery comments: Patient is a 22-year-old 2 para 1 at 39-0/7 weeks who was sent from the office due to advanced cervical dilatation in labor with contractions. Pt doing well PPD#2 s/p . Meeting milestones. Can be discharged home. Time Attestation: Total time spent providing and/or coordinating discharge services: Time Spent: Less than 30 minutes Exam - Constitutional Vitals: Temp Pulse Resp BP Pulse Ox 98.7 F 74 14 120/84 100 01/29/17 20:30 01/29/17 20:30 01/29/17 20:30 01/29/17 20:30 01/29/17 20:30 General appearance IM: A&O X 3, no acute distress - Respiratory Respiratory exam: Present: CTAB - Cardiovascular Cardiovascular exam IM: Present: RRR, +S1, +S2 - GI/Abdominal GI/Abdominal exam IM: normal bowel sounds, soft, no peritoneal signs - Uterine Tone: Firm Uterus Position: 2 Fingers Below Umbilicus - Extremities Exam Extremities exam IM: Present: normal capillary refill, normal inspection - Neurological Exam Neurological exam: alert, no focal deficits - Psychiatric Additional comments: reports good mood.
[2017-01-30 10:34] VITALS: BP 105/71
== END 2017-01-30 17:00 | disposition home or self-care (01) | DRG 560 ==
LOC: 1NENULAB 14:02 → 1NENUOBS 01-29 00:03
PROVIDERS: ADMIT Obstetrics & Gynecology; ATTEND Obstetrics & Gynecology